=== PATIENT | female | born 1980 | race Two or more races ===

== ENCOUNTER 2018-03-21 21:26 | Emergency (ER) | payer OTHER ==
[~2018-03-21] VITALS: Ht 154.9 cm; Wt 84.8 kg
--- NOTE | 2018-03-21 21:47 | NUR ---
PT PRESENTED TO THE ER WITH A C/O NAUSEA AND VOMITTING SINCE YESTERDAY. PT HAD A GASTRIC BIPASS 1 MONTH AGO. PT STATED THAT SHE SPOKE TO HER SURGEON WHO TOLD HER TO GO TO ER. PT HAS TAKEN ZOFRAN ODT AT HOME WITH NO RELIEF. 20G IV STARTED IN LAC.
[2018-03-21] MEDS ORDERED: ONDANSETRON HCL/PF 4 MG/2 ML VIAL ONE ×2 (22:16→22:23)
[2018-03-21] MEDS ORDERED: IV D5/ 0.9% NACL 1,000 ML IV ONE (22:19)
[2018-03-21] MEDS ORDERED: ONDANSETRON HCL/PF 4 MG/2 ML VIAL IVP ONE (22:30)
--- NOTE | 2018-03-21 22:32 | NUR ---
PT MOVED TO BED #2.
[2018-03-21] MEDS ORDERED: KETOROLAC TROMETHAMINE INJ 30 MG/ML VIAL IV ONE (23:30)
[2018-03-21] MEDS ORDERED: KETOROLAC TROMETHAMINE INJ 30 MG/ML VIAL ONE (23:33)
[2018-03-22] MEDS ORDERED: METOCLOPRAMIDE HCL 10 MG/2 ML VIAL ONE (00:14)
[2018-03-22] MEDS ORDERED: diphenhydrAMINE HCL 50 MG/ML VIAL ONE (00:28)
[2018-03-22] MEDS ORDERED: diphenhydrAMINE HCL 50 MG/ML VIAL IV ONE (00:30)
[2018-03-22] MEDS ORDERED: METOCLOPRAMIDE HCL 10 MG/2 ML VIAL IV ONE (00:30)
--- NOTE | 2018-03-22 00:39 | NUR ---
PT IS RESTING COMFORTABLY WITH NO S/S OF PAIN OR DISTRESS. PT IS ON THE MONITOR AND CONTINUOS PULSE OX.
--- NOTE | 2018-03-22 00:45 | NUR ---
PT REC'D MEDICATION ORDERED.
[2018-03-22] MEDS ORDERED: IV NS 0.9% 1,000 ML BAG IV ONE (01:00)
[2018-03-22 01:30] LABS: BASOPHILS % (AUTO) 0.4 % (0.0-2.0); EOSINOPHILS % (AUTO) 3.2 % (0.0-6.0); HEMATOCRIT 35 % (33-45); LYMPHOCYTES # (AUTO) 2.7 /CMM (0.8-4.8); LYMPHOCYTES % (AUTO) 32.8 % (20.0-44.0); MEAN CORPUSCULAR HGB CONC 35 g/dl (31.0-36.0); MEAN CORPUSCULAR VOLUME 77 fL (82-100); MONOCYTES # (AUTO) 0.9 /CMM (0.1-1.30); MONOCYTES % (AUTO) 10.5 % (2.0-12.0); NEUTROPHILS # (AUTO) 4.4 /CMM (1.8-8.9); NEUTROPHILS % (AUTO) 53.1 % (43.0-81.0); PLATELET COUNT (AUTO) 285 /CMM (150-450); RDW COEFFICIENT OF VARIATION 14.5 (11.5-15.0); RED BLOOD CELL COUNT(AUTO) 4.49 MIL/uL (4.0-5.2); WHITE BLOOD COUNT (AUTO) 8.3 K/uL (4.3-11.0)
[2018-03-22 01:34] VITALS: BP 99/62
--- NOTE | 2018-03-22 01:35 | NUR ---
IV removed. Catheter intact and site benign. Pressure and 4x4 applied to site. No bleeding noted.Patient discharged to home in stable condition. Written and verbal after care instructions given. Patient verbalizes understanding of instruction AND RX. PT AMBULATED OUT WITH A SLOW STEADY GAIT. PT'S IS DRIVING PT HOME. VSS. PT DID NOT WANT THE LAST [address] HIGGINS IS AWARE. RESP EVEN AND UNLABORED. PT DENIES N/V AT THIIS TIME.
[2018-03-22 01:52] LABS: ALBUMIN 3.3 g/dL (3.4-5.0); BILIRUBIN,TOTAL 0.8 mg/dL (0.2-1.0); CALCIUM, SERUM 8.7 mg/dL (8.5-10.1); CREATININE 0.6 mg/dL (0.6-1.3); TOTAL PROTEIN, SERUM 7.3 g/dL (6.4-8.2)
[2018-03-22 02:04] LABS: POTASSIUM 2.5 mmol/L (3.5-5.1)
== END 2018-03-22 01:36 | disposition home or self-care (01) ==
LOC: ER 21:26
DX: R11.2 Nausea with vomiting, unspecified (principal); E87.6 Hypokalemia; Z88.5 Allergy status to narcotic agent; Z88.0 Allergy status to penicillin
CPT/HCPCS: 36415; 80053-TC; 85025-TC; A4606; J1200; J1885; J2405; J2765; J7030; J7070; Z7610